=== PATIENT | female | born 1985 | race Caucasian/White ===

== ENCOUNTER 2016-10-15 08:12 | Outpatient (CLI) ==
[2016-10-14 10:56] VITALS: BMI 26.2
[2016-10-15 08:54] LABS: BASOPHILS # (AUTO) 0.1 K/uL (0-0.2); BASOPHILS % (AUTO) 0.6 % (0.0-3.0); EOSINOPHILS # (AUTO) 0.3 K/ul (0.0-0.7); EOSINOPHILS % (AUTO) 2.5 % (0.0-7.0); HEMATOCRIT 42.5 % (37.0-47.0); HEMOGLOBIN 14.1 g/dl (12.0-16.0); IMMATURE GRANULOCYTE % (AUTO) 0.2 % (0.0-5.0); LYMPHOCYTES % (AUTO) 23.4 (10.0-50.0); MEAN CORPUSCULAR HEMOGLOBIN 27.1 pg (27.0-31.0); MEAN CORPUSCULAR HGB CONC 33.2 (31.8-35.4); MEAN CORPUSCULAR VOLUME 81.6 fl (81.0-99.0); MONOCYTES # (AUTO) 0.8 K/uL (0.4-2.0); MONOCYTES % (AUTO) 6.1 (0-10); NEUTROPHILS # (AUTO) 8.6 K/ul (2.0-6.9); NEUTROPHILS % (AUTO) 67.2; PLATELET COUNT 387 10^3/uL (140-440); RED BLOOD COUNT 5.21 10^6/ul (4.20-5.40); WHITE BLOOD COUNT 12.71 K/ul (4.6-10.2)
[2016-10-15 08:59] LABS: BILIRUBIN,URINE 1+ (NEGATIVE); KETONES,URINE Negative (NEGATIVE); LEUKOCYTE ESTERASE ,URINE 1+ (NEGATIVE); NITRITE,URINE Negative (NEGATIVE); PH,URINE 5.5 (5-9); PROTEIN,URINE Trace (NEGATIVE); URINE, BLOOD Negative (NEGATIVE)
[2016-10-15 09:06] LABS: ADD URINE MICROSCOPIC YES
[2016-10-15 09:09] LABS: BACTERIA,URINE 2+ (NOT PRESENT)
[2016-10-15 09:26] LABS: ALBUMIN 3.5 g/dL (3.4-5.0); ALBUMIN/GLOBULIN RATIO 1.06; ANION GAP 12.8; BILIRUBIN,TOTAL 0.32 mg/dL (0.00-1.20); BUN/CREATININE RATIO 12.5; CALCIUM 9.4 mg/dL (8.2-10.2); CHOL/HDL RATIO 3.7 (4.5-5.5); CREATININE 0.8 mg/dL (0.60-1.30); POTASSIUM 3.8 mmol/L (3.5-5.10); TOTAL PROTEIN 6.8 g/dL (6.4-8.2)
--- NOTE | 2016-10-15 09:45 | DI ---
Exam: Three x-rays of the sinus and paranasal sinuses. Comparison: CT of the brain performed 12/22/2012. Reason for exam: Disorder of nose and nasal sinuses. FINDINGS: No displaced facial fractures are seen. The frontal and maxillary sinuses are not opacif ied. The orbital rims appear intact. Impression: Normal appearing aeration of the frontal and maxillary sinuses without evidence of displaced facial fractures.
== END 2016-10-15 08:13 | disposition home or self-care (01) ==
LOC: LAB 08:12
PROVIDERS: ATTEND General Practice
DX: J34.89 Other specified disorders of nose and nasal sinuses (principal); R63.8 Other symptoms and signs concerning food and fluid intake; Z76.89 Persons encountering health services in other specified circumstances
CPT/HCPCS: 36415; 80053; 80061; 81001; 83525; 84443; 85025; 87086